=== PATIENT | female | born 1955 | race Caucasian/White ===

== ENCOUNTER → 2016-08-22 | Outpatient (CLI) | payer OTHER | END | disposition home or self-care (01) | LOC: C.LABSPEC 17:53 | PROVIDERS: ATTEND Nurse Practitioner Family | DX: J02.9 Acute pharyngitis, unspecified (principal) ==

== ENCOUNTER → 2016-08-23 | Outpatient (CLI) | payer OTHER | END | disposition home or self-care (01) | LOC: C.PAPS 11:22 | PROVIDERS: ATTEND Obstetrics & Gynecology | DX: Z12.4 Encounter for screening for malignant neoplasm of cervix (principal); Z87.42 Personal history of other diseases of the female genital tract ==

== ENCOUNTER → 2016-10-24 | Outpatient (CLI) | payer OTHER ==
--- NOTE | 2016-10-24 13:17 | MAMMOGRAPHY REPORT ---
BILATERAL DIGITAL SCREENING MAMMOGRAM TOMOSYNTHESIS WITH CAD: 10/24/2016 CLINICAL HISTORY: Routine screening. Patient has no complaints. TECHNIQUE: Breast tomosynthesis in addition to standard 2D mammography was performed. Current study was also evaluated with a Computer Aided Detection (CAD) system. COMPARISON: Comparison is made to exams dated: 12/27/2014 mammogram, 02/07/2012 mammogram, 01/10/2010 mammogram, 08/16/2008 mammogram, and 01/30/2007 mammogram. BREAST COMPOSITION: The tissue of both breasts is extremely dense, which lowers the sensitivity of mammography. FINDINGS: No suspicious masses, calcifications, or areas of architectural distortion are noted in e ither breast. There has been no significant interval change compared to prior exams. IMPRESSION: ACR BI-RADS CATEGORY 1: NEGATIVE There is no mammographic evidence of malignancy. A 1 year screening mammogram is recommended. The p atient will receive written notification of the results. Approximately 10% of breast cancers are not detected with mammography. A negative mammographic repor t should not delay biopsy if a clinically suggestive mass is present. Nai Giron M.D. ah/:10/24/2016 12:23:34 Guest Relations Officer: Birgit LOVE(R)(M), [facility] letter sent: Normal 1/2 BI-RADS Code: ACR BI-RADS Category 1: Negative
== END | disposition home or self-care (01) ==
LOC: C.MAMM 11:24
PROVIDERS: ATTEND Family Medicine
DX: Z12.31 Encounter for screening mammogram for malignant neoplasm of breast (principal)

== ENCOUNTER → 2016-11-26 | Outpatient (CLI) | payer OTHER ==
[2016-11-26 13:40] LABS: BASO % 0.3 %; BASO ABS # 0.03 K/uL (0-0.2); COMPLETE YES; EOS % 1.3 %; HEMATOCRIT 39.9 % (37-47); IG% 0.2 %; LYMPH % 17.1 %; LYMPH ABS # 1.53 K/uL (1.2-3.4); MEAN CORPUSCULAR HEMOGLOBIN 30.3 pg (25-34); MEAN CORPUSCULAR HGB CONC 32.6 g/dl (32-36); MEAN PLATELET VOLUME 11.6 fL (7.4-10.4); MONO % 5.8 %; NEUT % 75.3 %; PLATELET COUNT 293 K/uL (130-400); RED BLOOD COUNT 4.29 M/uL (4.2-5.4); WHITE BLOOD COUNT 8.94 K/uL (4.8-10.8)
[2016-11-26 14:00] LABS: BLOOD UREA NITROGEN 11 mg/dl (7-18); BUN/CREATININE RATIO 12.9 (10-20); CARBON DIOXIDE 27 mmol/L (21-32); CHLORIDE 104 mmol/L (98-107); CREATININE 0.87 mg/dl (0.60-1.20); GLUCOSE 101 mg/dl (70-99); POTASSIUM 4.3 mmol/L (3.5-5.1); SODIUM 140 mmol/L (136-145)
[2016-11-26 14:03] LABS: CALCIUM 9.2 mg/dl (8.5-10.1)
[2016-11-26 14:06] LABS: FERRITIN 20.8 ng/ml (8.0-388.0); TOTAL IRON BINDING CAPACITY 313 mcg/dl (250-450)
== END | disposition home or self-care (01) ==
LOC: C.LAB1850 12:10
PROVIDERS: ATTEND Family Medicine
DX: Z11.59 Encounter for screening for other viral diseases (principal); D50.9 Iron deficiency anemia, unspecified; M81.0 Age-related osteoporosis without current pathological fracture; M79.7 Fibromyalgia

== ENCOUNTER → 2017-07-22 | Outpatient (CLI) | payer OTHER ==
[2017-07-22 09:38] LABS: BASO % 0.9 %; BASO ABS # 0.05 K/uL (0-0.2); EOS % 2.6 %; EOS ABS # 0.15 K/uL (0-0.5); HEMATOCRIT 38.9 % (37-47); HEMOGLOBIN 13.3 g/dL (12.0-16.0); IG# 0.01 K/uL (0.00-0.02); LYMPH % 21.8 %; LYMPH ABS # 1.26 K/uL (1.2-3.4); MEAN CELL VOLUME 93.7 fL (80-100); MEAN CORPUSCULAR HGB CONC 34.2 g/dl (32-36); MEAN PLATELET VOLUME 11.3 fL (7.4-10.4); MONO % 5.4 %; MONO ABS # 0.31 K/uL (0.11-0.59); NEUT % 69.1 %; NEUT ABS # 4.01 K/uL (1.4-6.5); PLATELET COUNT 268 K/uL (130-400); RED CELL DISTRIBUTION WIDTH CV 13.4 % (11.5-14.5); RED CELL DISTRIBUTION WIDTH SD 46.1 fL (36.4-46.3); WHITE BLOOD COUNT 5.79 K/uL (4.8-10.8)
[2017-07-22 10:09] LABS: ALBUMIN 3.8 gm/dl (3.4-5.0); ALT/SGPT 29 U/L (12-78); AST/SGOT 21 U/L (15-37); BLOOD UREA NITROGEN 8 mg/dl (7-18); CALCIUM 8.9 mg/dl (8.5-10.1); CARBON DIOXIDE 31 mmol/L (21-32); CREATININE 0.87 mg/dl (0.60-1.20); GLUCOSE 80 mg/dl (70-99); POTASSIUM 3.9 mmol/L (3.5-5.1); SODIUM 135 mmol/L (136-145)
[2017-07-22 10:20] LABS: ALKALINE PHOSPHATASE 81 U/L (45-117); CHOLESTEROL 179 mg/dl (0-200); LDL CHOLESTEROL CALCULATED 95 mg/dl; TOTAL PROTEIN 7.7 gm/dl (6.4-8.2)
== END | disposition home or self-care (01) ==
LOC: C.LAB1850 08:55
PROVIDERS: ATTEND Neuromusculoskeletal Medicine & OMM
DX: Z00.00 Encounter for general adult medical examination without abnormal findings (principal); R53.83 Other fatigue; Z13.220 Encounter for screening for lipoid disorders; Z13.1 Encounter for screening for diabetes mellitus

== ENCOUNTER → 2017-09-30 | Outpatient (CLI) | payer OTHER | END | disposition home or self-care (01) | LOC: C.LAB1850 09:48 | PROVIDERS: ATTEND Internal Medicine Rheumatology | DX: M81.0 Age-related osteoporosis without current pathological fracture (principal); E55.9 Vitamin D deficiency, unspecified ==

== ENCOUNTER → 2018-01-29 | Outpatient (CLI) | payer OTHER | END | disposition home or self-care (01) | LOC: C.LABBC 15:29 | PROVIDERS: ATTEND Nurse Practitioner Family | DX: R20.2 Paresthesia of skin (principal) ==

== ENCOUNTER 2022-01-04 20:48 | Inpatient (IN) ==
[2022-01-04] MEDS ORDERED: ACETAMINOPHEN 1,000 MG/100 ML VIAL IV STA (21:39)
[2022-01-04] MEDS ORDERED: cefTRIAXone SODIUM 1,000 MG/50 ML BAG IV STA (21:39)
[2022-01-04] MEDS ORDERED: SODIUM CHLORIDE 0.9% 1000ML 1,000 ML IV ONE (21:39)
--- NOTE | 2022-01-04 21:54 | Emergency Department Note ---
History of Present Illness General Chief complaint: Leg Injury/Pain Stated complaint: CELULITIS IN RT LEG Time Seen by Provider: 01/04/22 21:28 History of Present Illness Maximum Pain Intensity: 8 This 66-year-old presents to the ER complaining of worsening right lower leg cellulitis for the past few days that was placed on Keflex by the PCP Location: Right lower leg Quality: Red and swollen Severity: Painful Duration: Past day Timing: Started yesterday Context: Symptoms got worse and patient came in Modifying factors: better with apap; worse with activity patient had a low-grade fever. She took Tylenol earlier today. She is having diarrhea the past few days. Patient denies chest pain, dyspnea, cough, congestion, flulike illness. Home Medications Medication Instructions Recorded Confirmed Type ondansetron 8 mg disintegrating 8 mg PO Q8H PRN nausea and 04/21/20 01/04/22 Rx tablet vomiting #30 tabs cyclobenzaprine 5 mg tablet 5 mg PO HS PRN muscle spasm 04/24/21 01/04/22 History fremanezumab-vfrm 225 mg/1.5 mL 225 mg (1.5 mL) subcut .COMPLEX 04/24/21 01/04/22 Rx subcutaneous syringe (Ajovy #1.5 mL Syringe) ketoconazole 2 % shampoo 1 applic topical .Apply shampoo 04/24/21 01/04/22 History daily PRN NEEDED PER PT calcium carb,cit ER 600 mg-vit D3 2 tab PO DAILY 05/02/21 01/04/22 History 12.5 mcg (500 unit) tablet,ext.rel (Citracal-D3 Slow Release) hydrocortisone 2.5 % topical cream 1 applic topical .APPLY SPARINGLY 05/02/21 01/04/22 History TO A PRN skin irritation ubrogepant 50 mg tablet (Ubrelvy) 50 mg PO .COMPLEX #10 tabs 06/26/21 01/04/22 Rx magnesium oxide 400 mg PO HS 10/11/21 01/04/22 History multivitamin 1 tab PO DAILY 10/11/21 01/04/22 History budesonide 9 mg tablet,delayed and 9 mg PO DAILY crohns disease #60 ea 11/15/21 01/04/22 Rx extended release mesalamine 1.2 gram tablet,delayed 4.8 g PO DAILY 8 weeks #224 tabs 11/15/21 01/04/22 Rx release olopatadine 0.6 % nasal spray 2 spray intranasal DAILY #30.5 11/28/21 01/04/22 Rx (Patanase) grams cephalexin 500 mg capsule 500 mg PO TID 7 days #21 caps 01/03/22 01/04/22 Rx conjugated estrogens 0.625 mg/gram 0.625 mg vaginal 2XWK 01/04/22 01/04/22 History vaginal cream valacyclovir 1 gram tablet 2,000 mg PO BID PRN Cold Sores 01/04/22 01/04/22 History Allergies Allergy/AdvReac Type Severity Reaction Status Date / Time teriparatide [From Forteo] AdvReac Intermediate Lower back Verified 01/03/22 10:42 pain, sweating and fatigue gluten AdvReac Unknown "gluten Verified 01/03/22 10:42 sensitive" Past Med/Surg History Medical History Acid reflux HX Arthritis Fibromyalgia History of anemia History of anxiety History of depression History of IBS History of kidney stones NO SURGERIES History of pathological fracture due to osteoporosis Hx of human papillomavirus infection Migraine Osteoporosis Seasonal allergies Surgical History H/O bilateral salpingectomy History of colonoscopy History of colposcopy "SEVERAL" History of esophagogastroduodenoscopy (EGD) History of hysterectomy History of tooth extraction Family History Mother Congestive heart failure Dementia Breast cancer Hypertension Family history of diabetes mellitus Grandfather (Paternal) Prostate cancer Father Lymphoma Cancer Brother Drug abuse Alcohol abuse Bipolar disorder Heart disease Allergies Grandfather Prostate cancer Grandmother (Maternal) Hypertension Sister Family history of diabetes mellitus Other No family history of adverse response to anesthesia No family history of bleeding disorder Stroke Denies family history of Colon cancer Ovarian cancer Myocardial infarction Social History Smoking Status: Never smoker Number of Years Since Quit: 40; Second Hand Exposure: Yes; Hx Alcohol Use: No Hx Substance Use: No Preferred Language: American Communication Ability: Effective Visual Impairment: No Limitations Hearing Ability: Normal Manager Golf Required: No Beliefs That Will Affect Care: None marital status: Current Living Situation: Family current occupational status: employed current occupation: self employed Feels Safe at Home: Yes Childhood Exposure to Second-Hand Smoke: Yes Dental Care, Regularly: Yes Physical Activity Frequency: Does not Exercise Seatbelt Use: always Sunscreen Use: Yes Assistive Devices: Glasses Review of Systems A total of 10 systems reviewed and were otherwise negative Physical Exam Vital Signs Vital Signs - 24 hr 01/04/22 21:02 01/04/22 21:31 01/04/22 21:31 Temperature 37.7 C H Temperature Source Temporal Artery Scan Pulse Rate 98 H Pulse Rate [Apical] Respiratory Rate 20 20 Respiratory Effort / Characteristics Non-Labored Spontaneous Respiratory Depth Normal Respiratory Pattern Blood Pressure 121/67 Blood Pressure [Right Arm] Blood Pressure Mean 85 Blood Pressure Mean [Right Arm] Blood Pressure Position Sitting Blood Pressure Position [Right Arm] Pulse Oximetry 96 98 98 Oxygen Delivery Method Room Air Room Air Room Air Sepsis Recent Fever Within 48 Hours Yes Sepsis New/Unexplained Change in Mental Status N/A Sepsis Action Taken by Nursing No Action Required 01/04/22 22:01 01/04/22 22:31 01/04/22 22:42 Temperature Temperature Source Pulse Rate Pulse Rate [Apical] 75 Respiratory Rate 20 18 20 Respiratory Effort / Characteristics Non-Labored Spontaneous Non-Labored Spontaneous Non-Labored Spontaneous Respiratory Depth Normal Respiratory Pattern Regular Blood Pressure Blood Pressure [Right Arm] 142/68 H Blood Pressure Mean Blood Pressure Mean [Right Arm] 92 Blood Pressure Position Blood Pressure Position [Right Arm] Sitting Pulse Oximetry 100 100 98 Oxygen Delivery Method Room Air Room Air Room Air Sepsis Recent Fever Within 48 Hours Sepsis New/Unexplained Change in Mental Status Sepsis Action Taken by Nursing VITALS: Vitals are noted on the nurse's note and reviewed by myself. Vital signs low-grade fever. GENERAL: Pleasant female, in no acute distress, nondiaphoretic, well-developed well-nourished. SKIN: Right lower anterior leg erythematous and edematous concerning for infection, the rest of the skin was without rashes, erythema, edema, or bruising. There is no tenting of the skin. Capillary reflex less than 2 seconds. HEAD: Normocephalic atraumatic. EARS: External auditory canals clear, EYES: Pupils equal round and reactive to light and accommodation. Conjunctivae without injection, sclerae without icterus. Extraocular movements intact. NOSE: Patent, turbinates without inflammation or discharge. MOUTH: Mucous membranes moist. Pharynx without erythema or exudate. Uvula midline. Airway patent. Tongue does not deviate. NECK: Supple without nuchal rigidity. No lymphadenopathy. No thyromegaly. Cervical spine is nontender. No JVD. HEART: Regular rate and rhythm LUNGS: Clear to auscultation bilaterally without wheezes, rales or rhonchi. No retractions or accessory muscle use. ABDOMEN: Positive bowel sounds x 4. Normal tympanic percussion. Soft, nontender, without masses or organomegaly. Regalado sign negative. No guarding or rebound tenderness. No CVA tenderness MUSCULOSKELETAL: No muscle atrophy, noted. NEURO: Patient was alert and oriented to person place and time. Normal sensation to light and sharp touch. No focal neurological deficits. Course Administered Medications Daptomycin 275 mg/ Syringe 5.5 mls @ 2.75 mls/min IV Q24H [facility]; Protocol Stop: 01/12/22 00:59 Last Admin: 01/05/22 01:09 Dose: 2.75 mls/min Documented By: ALMA Parenteral Electrolytes (Normosol-R) 1,000 mls @ 80 mls/hr IV .[id number] BRENNAN Stop: 02/03/22 23:44 Last Admin: 01/05/22 00:56 Dose: 80 mls/hr Documented By: ALMA Discontinued Medications Sodium Chloride (Nss 1000ml) 1,000 mls @ 999 mls/hr IV .[id number] ONE Stop: 01/04/22 22:39 Last Infusion: 01/04/22 23:43 Dose: 0 mls/hr Documented By: Admin: 01/04/22 22:17 Dose: 999 mls/hr Documented By: ALEX Acetaminophen (Ofirmev) 1,000 mg in 100 mls @ 400 mls/hr IV NOW STA Stop: 01/04/22 21:53 Last Infusion: 01/04/22 22:40 Dose: 0 mls/hr Documented By: Admin: 01/04/22 22:20 Dose: 400 mls/hr Documented By: ALEX Ceftriaxone Sodium (Rocephin) 1,000 mg in 50 mls @ 100 mls/hr IV NOW STA Stop: 01/04/22 22:08 Last Infusion: 01/04/22 22:51 Dose: 0 mls/hr Documented By: Admin: 01/04/22 22:21 Dose: 100 mls/hr Documented By: ALEX Vancomycin HCl 1,000 mg/ (Sodium Chloride) 520 mls @ 200 mls/hr IV NOW ONE Stop: 01/05/22 01:56 Last Admin: 01/04/22 23:42 Dose: Not Given Documented By: CLARISA Piperacillin Sod/Tazobactam (Sod 4.5 gm/ Dextrose) 120 mls @ 200 mls/hr IV 0100 ONE; Protocol Stop: 01/05/22 01:35 Last Infusion: 01/05/22 01:59 Dose: 0 mls/hr Documented By: Admin: 01/05/22 01:09 Dose: 200 mls/hr Documented By: ALMA Medical Decision Making Medical Records Attestation: I reviewed the patient's medical records. Home Medications Current Medication List: was personally reviewed by me Laboratory Data Attestation: I reviewed the patient's lab results. Result diagrams: 01/04/22 21:49 01/04/22 21:49 Lab Results 01/04/22 01/04/22 01/04/22 Range/Units 21:49 21:49 21:49 WBC 10.56 (4.8-10.8) K/ul RBC 4.09 (3.93-5.22) M/uL Hgb 12.5 (12.0-16.0) g/dl Hct 38.2 (34.1-44.9) % MCV 93.4 (80.0-100.0) fL MCH 30.6 (25.0-34.0) pg MCHC 32.7 (32.0-36.0) g/dL RDW Std Deviation 45.0 (36.4-46.3) fL RDW Coeff of Chay 13.2 (11.5-14.5) % Plt Count 232 (130-400) K/uL MPV 11.7 (9.4-12.3) fL Immature Gran % (Auto) 0.2 % Neut % (Auto) 82.5 % Lymph % (Auto) 10.0 % [place] % (Auto) 6.7 % Eos % (Auto) 0.3 % Baso % (Auto) 0.3 % Neut # (Auto) 8.71 H (1.4-6.5) K/uL Lymph # (Auto) 1.06 L (1.2-3.4) K/uL [place] # (Auto) 0.71 (0.24-0.82) K/uL Eos # (Auto) 0.03 (0-0.50) K/uL Baso # (Auto) 0.03 (0-0.2) K/uL Immature Gran # (Auto) 0.02 (0.00-0.02) K/uL PT 10.9 (9.0-12.0) Seconds INR 1.0 (0.9-1.1) APTT 27.1 (21.0-31.0) Seconds PTT Ratio 1.0 Sodium 141 (136-145) mmol/L Potassium 3.7 (3.5-5.1) mmol/L Chloride 107 (98-107) mmol/L Carbon Dioxide 28 (21-32) mmol/L Anion Gap 6 (3-11) BUN 12 (6-23) mg/dl Creatinine 1.15 (0.6-1.2) mg/dl Est Cr Clr Drug Dosing 35.3 ml/min Est GFR ( Amer) 57.8 ml/min Est GFR (Non-Af Amer) 49.9 ml/min BUN/Creatinine Ratio 10.4 (10-20) Glucose 105 H (70-99(Fasting)) mg/dl Lactate (0.4-2.0) mmol/L Calcium 8.9 (8.5-10.1) mg/dl Magnesium 2.0 (1.7-2.4) mg/dl Total Bilirubin 0.5 (0.2-1.0) mg/dl AST 23 (13-39) U/L ALT 22 (7-52) U/L Alkaline Phosphatase 81 (34-104) U/L Total Protein 7.1 (6.0-8.3) gm/dl Albumin 4.2 (3.4-5.0) gm/dl Globulin 2.9 (2.5-4.0) gm/dl Albumin/Globulin Ratio 1.4 (0.9-2) Procalcitonin (0-0.5) ng/ml Urine Color Urine Appearance (Clear) Urine pH (4.5-7.5) Ur Specific [place] (1.000-1.030) Urine Protein (Negative) Urine Glucose (UA) (Negative) Urine Ketones (Negative) Urine Blood (Negative) Urine Nitrite (Negative) Urine Bilirubin (Negative) Urine Urobilinogen (Negative) Ur Leukocyte Esterase (Negative) Lyme Disease IgG Ab (Negative) Lyme Disease IgM Ab (Negative) SARS-CoV-2 (PCR) (Negative) 01/04/22 01/04/22 01/04/22 Range/Units 21:49 21:49 21:49 WBC (4.8-10.8) K/ul RBC (3.93-5.22) M/uL Hgb (12.0-16.0) g/dl Hct (34.1-44.9) % MCV (80.0-100.0) fL MCH (25.0-34.0) pg MCHC (32.0-36.0) g/dL RDW Std Deviation (36.4-46.3) fL RDW Coeff of Chay (11.5-14.5) % Plt Count (130-400) K/uL MPV (9.4-12.3) fL Immature Gran % (Auto) % Neut % (Auto) % Lymph % (Auto) % [place] % (Auto) % Eos % (Auto) % Baso % (Auto) % Neut # (Auto) (1.4-6.5) K/uL Lymph # (Auto) (1.2-3.4) K/uL [place] # (Auto) (0.24-0.82) K/uL Eos # (Auto) (0-0.50) K/uL Baso # (Auto) (0-0.2) K/uL Immature Gran # (Auto) (0.00-0.02) K/uL PT (9.0-12.0) Seconds INR (0.9-1.1) APTT (21.0-31.0) Seconds PTT Ratio Sodium (136-145) mmol/L Potassium (3.5-5.1) mmol/L Chloride (98-107) mmol/L Carbon Dioxide (21-32) mmol/L Anion Gap (3-11) BUN (6-23) mg/dl Creatinine (0.6-1.2) mg/dl Est Cr Clr Drug Dosing ml/min Est GFR ( Amer) ml/min Est GFR (Non-Af Amer) ml/min BUN/Creatinine Ratio (10-20) Glucose (70-99(Fasting)) mg/dl Lactate 0.4 (0.4-2.0) mmol/L Calcium (8.5-10.1) mg/dl Magnesium (1.7-2.4) mg/dl Total Bilirubin (0.2-1.0) mg/dl AST (13-39) U/L ALT (7-52) U/L Alkaline Phosphatase (34-104) U/L Total Protein (6.0-8.3) gm/dl Albumin (3.4-5.0) gm/dl Globulin (2.5-4.0) gm/dl Albumin/Globulin Ratio (0.9-2) Procalcitonin (0-0.5) ng/ml Urine Color Urine Appearance (Clear) Urine pH (4.5-7.5) Ur Specific Crowell (1.000-1.030) Urine Protein (Negative) Urine Glucose (UA) (Negative) Urine Ketones (Negative) Urine Blood (Negative) Urine Nitrite (Negative) Urine Bilirubin (Negative) Urine Urobilinogen (Negative) Ur Leukocyte Esterase (Negative) Lyme Disease IgG Ab Negative (Negative) Lyme Disease IgM Ab Negative (Negative) SARS-CoV-2 (PCR) NEGATIVE (Negative) 01/04/22 01/04/22 Range/Units 21:49 22:37 WBC (4.8-10.8) K/ul RBC (3.93-5.22) M/uL Hgb (12.0-16.0) g/dl Hct (34.1-44.9) % MCV (80.0-100.0) fL MCH (25.0-34.0) pg MCHC (32.0-36.0) g/dL RDW Std Deviation (36.4-46.3) fL RDW Coeff of Chay (11.5-14.5) % Plt Count (130-400) K/uL MPV (9.4-12.3) fL Immature Gran % (Auto) % Neut % (Auto) % Lymph % (Auto) % [place] % (Auto) % Eos % (Auto) % Baso % (Auto) % Neut # (Auto) (1.4-6.5) K/uL Lymph # (Auto) (1.2-3.4) K/uL [place] # (Auto) (0.24-0.82) K/uL Eos # (Auto) (0-0.50) K/uL Baso # (Auto) (0-0.2) K/uL Immature Gran # (Auto) (0.00-0.02) K/uL PT (9.0-12.0) Seconds INR (0.9-1.1) APTT (21.0-31.0) Seconds PTT Ratio Sodium (136-145) mmol/L Potassium (3.5-5.1) mmol/L Chloride (98-107) mmol/L Carbon Dioxide (21-32) mmol/L Anion Gap (3-11) BUN (6-23) mg/dl Creatinine (0.6-1.2) mg/dl Est Cr Clr Drug Dosing ml/min Est GFR ( Amer) ml/min Est GFR (Non-Af Amer) ml/min BUN/Creatinine Ratio (10-20) Glucose (70-99(Fasting)) mg/dl Lactate (0.4-2.0) mmol/L Calcium (8.5-10.1) mg/dl Magnesium (1.7-2.4) mg/dl Total Bilirubin (0.2-1.0) mg/dl AST (13-39) U/L ALT (7-52) U/L Alkaline Phosphatase (34-104) U/L Total Protein (6.0-8.3) gm/dl Albumin (3.4-5.0) gm/dl Globulin (2.5-4.0) gm/dl Albumin/Globulin Ratio (0.9-2) Procalcitonin < 0.05 (0-0.5) ng/ml Urine Color Yellow Urine Appearance Clear (Clear) Urine pH 7.0 (4.5-7.5) Ur Specific [place]ell 1.023 (1.000-1.030) Urine Protein Negative (Negative) Urine Glucose (UA) Negative (Negative) Urine Ketones Trace H (Negative) Urine Blood Negative (Negative) Urine Nitrite Negative (Negative) Urine Bilirubin Negative (Negative) Urine Urobilinogen Negative (Negative) Ur Leukocyte Esterase Negative (Negative) Lyme Disease IgG Ab (Negative) Lyme Disease IgM Ab (Negative) SARS-CoV-2 (PCR) (Negative) MDM Narrative Prior records reviewed and summarized as above. Triage Nursing notes reviewed. Additional history obtained from family. The patient's history was concerning for swelling and redness of the skin. Differential diagnosis: Etiologies such as cellulitis, abscess, MRSA infection, DVT, necrotizing fasciitis, dermatitis, drug eruption, as well as others were entertained.. Physical examination: The physical examination was consistent with cellulitis ER treatment provided: Rocephin, vancomycin, Tylenol IV fluids On reassessment the patient felt better. Diagnostics interpreted by me: The labs revealed no worrisome leukocytosis Blood cultures are pending Lactic negative Consultation: A consultation was placed with the hospitalist. The case was discussed and diagnostics were reviewed. The patient was evaluated in the ER for further treatment. This appears to be isolated cellulitis. The infection has gotten worse. Patient's infections got worse. She now has a fever. Medicine was consulted. She will be admitted for IV antibiotics. By the evaluation outlined above emergent etiologies such as abscess, necrotizing fasciitis, DVT, as well as others were deemed relatively unlikely. The pt informed about the findings as listed above. All questions were answered and pleased with the treatment. The chart was completed utilizing [employer] Speech voice recognition software. Grammatical errors, random word insertions, pronoun errors, and incomplete sentences are an occassional consequence of this system due to software [place] itations, ambient noise, and hardware issues. Any formal questions or concerns about the content, text, or information contained within the body of this dictation should be directly addressed to the physician graduate research assistant for clarification. Impression & Plan Cellulitis of leg, right Discharge Plan Visit Data Chief Complaint: Leg Injury/Pain Stated Complaint: CELULITIS IN RT LEG ED Provider: Martinez Caldwell ED Midlevel Provider: Cecile Rubalcava Discharge Problem: Cellulitis of leg, right Patient Disposition: Admitted As Inpatient Condition: Good Discharge Instructions Interventions: ED Discharge Assessment Last Done: 01/05/22 00:09
[2022-01-04 22:09] LABS: Basophils # (auto) 0.03 K/uL (0-0.2); Basophils % (auto) 0.3 %; Eosinophils # (auto) 0.03 K/uL (0-0.50); Eosinophils % (auto) 0.3 %; Hematocrit (blood only) 38.2 % (34.1-44.9); Hemoglobin 12.5 g/dl (12.0-16.0); Immature Granulocytes # (auto) 0.02 K/uL (0.00-0.02); Immature Granulocytes % (auto) 0.2 %; Lymphocytes # (auto) 1.06 K/uL (1.2-3.4); Mean Corpuscular Hemoglobin 30.6 pg (25.0-34.0); Mean Corpuscular Hgb Conc 32.7 g/dL (32.0-36.0); Mean Corpuscular Volume 93.4 fL (80.0-100.0); Mean Platelet Volume 11.7 fL (9.4-12.3); Monocytes # (auto) 0.71 K/uL (0.24-0.82); Monocytes % (auto) 6.7 %; Neutrophils # (auto) 8.71 K/uL (1.4-6.5); Neutrophils % (auto) 82.5 %; Platelet Count 232 K/uL (130-400); RDW Coefficient of Variation 13.2 % (11.5-14.5); Red Blood Count 4.09 M/uL (3.93-5.22); White Blood Count 10.56 K/ul (4.8-10.8)
[2022-01-04 22:20] LABS: Partial Thromboplastin Time 27.1 Seconds (21.0-31.0); Prothrombin Time 10.9 Seconds (9.0-12.0)
[2022-01-04 22:32] LABS: Albumin Globulin Ratio 1.4 (0.9-2); Albumin Level 4.2 gm/dl (3.4-5.0); BUN Creatinine Ratio 10.4 (10-20); Bilirubin,Total 0.5 mg/dl (0.2-1.0); Calcium 8.9 mg/dl (8.5-10.1); Creatinine Clr Calc Pharmacy 35.3 ml/min; Est GFR (African American) 57.8 ml/min; Est GFR (Non-African American) 49.9 ml/min; Globulin 2.9 gm/dl (2.5-4.0); Potassium 3.7 mmol/L (3.5-5.1); Total Protein 7.1 gm/dl (6.0-8.3)
[2022-01-04 22:49] LABS: Appearance Urine Clear (Clear); Bilirubin Urine Negative (Negative); Blood Urine Negative (Negative); Color Urine Yellow; Glucose Urine UA Negative (Negative); Ketones Urine Trace (Negative); Leukocyte Esterase Urine Negative (Negative); Nitrite Urine Negative (Negative); Protein Urine Negative (Negative); Specific Gravity Urine 1.023 (1.000-1.030); Urobilinogen Urine Negative (Negative)
--- NOTE | 2022-01-04 23:13 | History & Physical Report ---
Date of Service January 04, 2022 Assessment & Plan (1) Cellulitis of right lower extremity: Plan: Immunocompromised patient with growing right lower extremity cellulitis x 4-5 days, with associated fever/chills x1 day. No signs or symptoms of Lyme disease/tick-borne illness or sporotrichosis (recent raspberry picking). Failed outpatient Keflex. No sepsis on presentation. - lactate 0.4, ordered procalcitonin - pending - lyme IgM/IgG pending - s/p Ceftriaxone 1g IV in ED - continue with broad-spectrum coverage: Daptomycin 325mg IV Q24H + Zosyn 4.5mg IV Q8H - trend blood cx and adjust abx as necessary - s/p NSS 1L bolus - continue with full maintenance IVFs: Normosol-R @80cc/hr - PRN Tylenol for pain/fever - trend CBC in AM (2) Crohns disease: Plan: Chronic, diagnosed in 10/2021. - continue Budesonide 9mg PO daily and Mesalamine - consider addition of stress dose steroids if becomes septic (3) Chronic migraine w/o aura w/o status migrainosus, not intractable: Plan: Chronic, f/w [facility]. Continue home Ajovy. (4) Osteoporosis: Plan: Chronic. Continue daily calcium supplementation. Consider bisphosphonate as outpatient - per PCP. Plan FEN/GI: regular diet, Normosol-R @80cc/hr DVT Prophylaxis: Lovenox 30mg SQ Code Status: full code Disposition: med/tele History of Present Illness Chief Complaint: leg infection Primary Care Provider: Iwona Todd MD Monico Frost is a 66yo female with PMHx significant for Crohn's disease (diagno sed in 10/2021, on Budesonide/Mesalamine) and migraine with aura, who presented to [facility] ED on 01/04 for progressive right lower extremity cellulitis for several days, despite being started on Keflex PO by PCP on 01/03. Patient also reports fever/chills x1 day. Patient reports that she had been working in her raspberry patch every day before the onset of her RLE rash. Denies denies excoriation of her leg or bug bites while working in the patch. Denies red streaking up her leg although does have worsening pain when walking today. Patient is immunocompromised - diagnosed with Crohn's right-sided colitis in 10/2021 and started Mesalamine and Budesonide on 11/15/2021. Patient does have persistent diarrhea although this has improved since starting on medications. Denies smoking/alcohol/drug use. Proficient in ADLs/iADLs. In the ED the patient had elevated temp of 37.7C and HR 98. Normotensive and satting well on room air. Labs significant for WBC 10.56 (neutrophilic predominance, no left shift). Lactate 0.4. UA clean. CXR unremarkable. Patient was given NSS 1L bolus, Tylenol 1g IV, and CTX 1g IV. Blood culture collected before initation of abx. Patient currently feels cold and has mild p ain of right lower extremity. Allergies Allergy/AdvReac Type Severity Reaction Status Date / Time teriparatide [From Forteo] AdvReac Intermediate Lower back Verified 01/03/22 10:42 pain, sweating and fatigue gluten AdvReac Unknown "gluten Verified 01/03/22 10:42 sensitive" Home Medications Medication Instructions Recorded Confirmed Type ondansetron 8 mg disintegrating 8 mg PO Q8H PRN nausea and 04/21/20 01/04/22 Rx tablet vomiting #30 tabs cyclobenzaprine 5 mg tablet 5 mg PO HS PRN muscle spasm 04/24/21 01/04/22 History fremanezumab-vfrm 225 mg/1.5 mL 225 mg (1.5 mL) subcut .COMPLEX 04/24/21 01/04/22 Rx subcutaneous syringe (Ajovy #1.5 mL Syringe) ketoconazole 2 % shampoo 1 applic topical .Apply shampoo 04/24/21 01/04/22 History daily PRN NEEDED PER PT calcium carb,cit ER 600 mg-vit D3 2 tab PO DAILY 05/02/21 01/04/22 History 12.5 mcg (500 unit) tablet,ext.rel (Citracal-D3 Slow Release) hydrocortisone 2.5 % topical cream 1 applic topical .APPLY SPARINGLY 05/02/21 01/04/22 History TO A PRN skin irritation ubrogepant 50 mg tablet (Ubrelvy) 50 mg PO .COMPLEX #10 tabs 06/26/21 01/04/22 Rx magnesium oxide 400 mg PO HS 10/11/21 01/04/22 History multivitamin 1 tab PO DAILY 10/11/21 01/04/22 History budesonide 9 mg tablet,delayed and 9 mg PO DAILY crohns disease #60 ea 11/15/21 01/04/22 Rx extended release mesalamine 1.2 gram tablet,delayed 4.8 g PO DAILY 8 weeks #224 tabs 11/15/21 01/04/22 Rx release olopatadine 0.6 % nasal spray 2 spray intranasal DAILY #30.5 11/28/21 01/04/22 Rx (Patanase) grams cephalexin 500 mg capsule 500 mg PO TID 7 days #21 caps 01/03/22 01/04/22 Rx conjugated estrogens 0.625 mg/gram 0.625 mg vaginal 2XWK 01/04/22 01/04/22 History vaginal cream valacyclovir 1 gram tablet 2,000 mg PO BID PRN Cold Sores 01/04/22 01/04/22 History Past Med/Surg History Medical History Acid reflux HX Arthritis Fibromyalgia History of anemia History of anxiety History of depression History of IBS History of kidney stones NO SURGERIES History of pathological fracture due to osteoporosis Hx of human papillomavirus infection Migraine Osteoporosis Seasonal allergies Surgical History H/O bilateral salpingectomy History of colonoscopy History of colposcopy "SEVERAL" History of esophagogastroduodenoscopy (EGD) History of hysterectomy History of tooth extraction Family History Mother Congestive heart failure Dementia Breast cancer Hypertension Family history of diabetes mellitus Grandfather (Paternal) Prostate cancer Father Lymphoma Cancer Brother Drug abuse Alcohol abuse Bipolar disorder Heart disease Allergies Grandfather Prostate cancer Grandmother (Maternal) Hypertension Sister Family history of diabetes mellitus Other No family history of adverse response to anesthesia No family history of bleeding disorder Stroke Denies family history of Colon cancer Ovarian cancer Myocardial infarction Social History Smoking Status: Never smoker Number of Years Since Quit: 40; Second Hand Exposure: Yes; Hx Alcohol Use: No Hx Substance Use: No Preferred Language: Spanish Communication Ability: Effective Visual Impairment: No Limitations Hearing Ability: Normal Flight Operations Engineer Required: No Beliefs That Will Affect Care: None marital status: Current Living Situation: Family current occupational status: employed current occupation: self employed Feels Safe at Home: Yes Childhood Exposure to Second-Hand Smoke: Yes Dental Care, Regularly: Yes Physical Activity Frequency: Does not Exercise Seatbelt Use: always Sunscreen Use: Yes Assistive Devices: None Review of Systems Review of Systems: All systems reviewed & are unremarkable except as noted in HPI & below Physical Exam Physical Exam: General: A&Ox3. NAD. Cooperative. HEENT: Atraumatic, normocephalic. Pulm: CTAB A&P. -wheezes, -rales, -rhonchi. Symmetrical chest rise. No increase work of breathing. No respiratory distress. Cardiac: RRR, -mrg. Radial pulses intact and symmetrical. Abdominal: soft, non-tender, non-distended, BS x 4 Skin: RLE with erythematous rash on anterior chi with redness spreading down towards the ankle, 50% of circumference of leg, without red streaking beyond this. Warm/mildly tender to palpation. No excoriation/ulceration/drainage. Results & Data Results & Data ([facility]) Vital Signs (Past 12 Hours) Vital Signs Temp Pulse Pulse Resp BP BP Pulse Ox 01/04/22 22:42 75 20 142/68 H 98 01/04/22 22:31 18 100 01/04/22 22:01 20 100 01/04/22 21:31 98 01/04/22 21:31 20 98 01/04/22 21:02 37.7 C H 98 H 20 121/67 96 O2 Del Method 01/04/22 22:42 Room Air 01/04/22 22:31 Room Air 01/04/22 22:01 Room Air 01/04/22 21:31 Room Air 01/04/22 21:31 Room Air 01/04/22 21:02 Room Air Supervising Physician Co-Signing Physician Notes Attending addendum: I have physically seen this patient, have supervised the medical residents activities, and agree with the H&P unless as otherwise noted. Assessment and Plan: Right lower extremity cellulitis- Ordering Lyme titers Status post ceftriaxone 1 g IV in ED Due to immunocompromise state, placed on daptomycin IV and Zosyn IV as noted Status post 1 L normal saline in the ED Normosol 80 mils per hour x1 L Crohn's disease- Continue budesonide and mesalamine Remaining orders and notations as noted Resident Activity Tracking Resident Involvement: Resident Care Provided Care Provided: Adult [facility]
[2022-01-04] MEDS ORDERED: VANCOMYCIN CONSULT ACTIVE PRN (23:21)
[2022-01-04] MEDS ORDERED: VANCOMYCIN HCL 1,000 MG in SODIUM CHLORIDE 0.9% 500 ML IV ONE (23:21)
[2022-01-04] MEDS ORDERED: PIPERACILLIN/TAZOBACTAM 4.5 GM in DEXTROSE 5% 100 ML IV SCH (23:45)
[2022-01-05 00:04] LABS: Lyme Ab IgG w/WB Rflx Negative (Negative); Lyme Ab IgM w/WB Rflx Negative (Negative)
[2022-01-05] MEDS ORDERED: ONDANSETRON INJ 2 MG/ML 2 ML VIAL IV PRN (00:29)
[2022-01-05] MEDS ORDERED: ACETAMINOPHEN 500 MG TAB PO PRN (00:29)
[2022-01-05] MEDS: NORMOSOL-R 1,000 ML IV SCH ×2 (00:56→13:46)
[2022-01-05] MEDS ORDERED: PIPERACILLIN/TAZOBACTAM 4.5 GM in DEXTROSE 5% 100 ML IV ONE (01:00)
[2022-01-05] MEDS: DAPTOmycin 275 MG in SYRINGE 0 ML IV SCH (01:09)
[2022-01-05] MEDS ORDERED: HYDROmorphone INJ 0.5 MG/0.5 ML SYR IV PRN (02:32)
[2022-01-05] MEDS ORDERED: oxyCODONE HCL IR 5 MG TAB (IMMEDIATE RELEASE) PO PRN (02:32)
[2022-01-05] MEDS: PIPERACILLIN/TAZOBACTAM 3.375 GM in DEXTROSE 5% 100 ML IV SCH ×2 (05:15→14:42)
[2022-01-05 06:28] LABS: Basophils # (auto) 0.03 K/uL (0-0.2); Basophils % (auto) 0.3 %; Eosinophils # (auto) 0.06 K/uL (0-0.50); Eosinophils % (auto) 0.5 %; Hematocrit (blood only) 34.5 % (34.1-44.9); Hemoglobin 11.4 g/dl (12.0-16.0); Immature Granulocytes # (auto) 0.04 K/uL (0.00-0.02); Immature Granulocytes % (auto) 0.4 %; Lymphocytes # (auto) 1.04 K/uL (1.2-3.4); Lymphocytes % (auto) 9.5 %; Mean Corpuscular Hemoglobin 30.9 pg (25.0-34.0); Mean Corpuscular Volume 93.5 fL (80.0-100.0); Monocytes # (auto) 0.81 K/uL (0.24-0.82); Monocytes % (auto) 7.4 %; Neutrophils # (auto) 8.99 K/uL (1.4-6.5); Neutrophils % (auto) 81.9 %; Platelet Count 175 K/uL (130-400); RDW Coefficient of Variation 13.2 % (11.5-14.5); RDW Standard Deviation 45.1 fL (36.4-46.3); Red Blood Count 3.69 M/uL (3.93-5.22); White Blood Count 10.97 K/ul (4.8-10.8)
[2022-01-05 07:08] LABS: Albumin Globulin Ratio 1.4 (0.9-2); Albumin Level 3.6 gm/dl (3.4-5.0); BUN Creatinine Ratio 12.7 (10-20); Bilirubin,Total 0.6 mg/dl (0.2-1.0); Calcium 8.2 mg/dl (8.5-10.1); Creatinine Clr Calc Pharmacy 51.8 ml/min; Est GFR (Non-African American) 78.6 ml/min; Globulin 2.6 gm/dl (2.5-4.0); Magnesium 1.8 mg/dl (1.7-2.4); Potassium 3.5 mmol/L (3.5-5.1); Total Protein 6.2 gm/dl (6.0-8.3)
--- NOTE | 2022-01-05 07:14 | Ultrasound Report ---
ULTRASOUND RIGHT LOWER EXTREMITY VENOUS CLINICAL HISTORY: Right leg pain and swelling. Erythema. COMPARISON STUDY: No priors. TECHNIQUE: Real-time, grayscale, and color Doppler sonography of the deep veins of the right lower ex tremity was performed from the inguinal crease to the calf. Compression and augmentation were utilize d. FINDINGS: There is no sonographic evidence of deep venous thrombosis identified in the right lower ex tremity. The common femoral, superficial femoral, and popliteal veins are patent and normally verona sible. The greater saphenous vein and the profunda femoris vein at the junction with the common femor al vein are clear. The visualized calf veins are patent. Prominent right inguinal lymph nodes are lik amy reactive. IMPRESSION: There is no sonographic evidence of deep venous thrombosis identified in the right lower extremity. ACT 112: Negative or not required by law. Electronically signed by: Hugh Johnson M.D. 01/05/2022 7:12 AM
--- NOTE | 2022-01-05 07:15 | Hospitalist Progress Note ---
Date of Service January 05, 2022 Assessment & Plan (1) Cellulitis of right lower extremity: (2) Crohns disease: (3) Chronic migraine w/o aura w/o status migrainosus, not intractable: (4) Osteoporosis: Plan Monico Frost is a 66 y/o female with PMHx significant for Crohn's disease (diag nosed in 10/2021, on Budesonide/Mesalamine) and migraine with aura, who presented to [facility] ED on 01/04 for progressive right lower extremity cellulitis for several days, despite being started on Keflex PO by PCP on 01/03. Patient also reports fever/chills x1 day. Patient reports that she had been working in her raspberry patch every day before the onset of her RLE rash. Denies denies excoriation of her leg or bug bites while working in the patch. Denies red streaking up her leg although does have worsening pain when walking today. Patient is immunocompromised - diagnosed with Crohn's right-sided colitis in 10/2021 and started Mesalamine and Budesonide on 11/15/2021. Patient does have persistent diarrhea although this has improved since starting on medications. Denies smoking/alcohol/drug use. Proficient in ADLs/iADLs. In the ED the patient had elevated temp of 37.7C and HR 98. Normotensive and satting well on room air. Labs significant for WBC 10.56 (neutrophilic predominance, no left shift). Lactate 0.4. UA clean. CXR unremarkable. Patient was given NSS 1L bolus, Tylenol 1g IV, and CTX 1g IV. Blood culture collected before initiation of abx. Patient currently feels cold and has mild p ain of right lower extremity. #Cellulitis RLE Immunocompromised patient with growing right lower extremity cellulitis x 4-5 days, with associated fever/chills x1 day. No signs or symptoms of Lyme dis ease/tick-borne illness or sporotrichosis (recent raspberry picking). Failed outpatient Keflex. No sepsis on presentation. Lactate 0.4, procal <0.05, Lyme IgG neg and IgM neg. [] s/p Ceftriaxone 1g IV in ED - continue with broad-spectrum coverage: Daptomycin 325mg IV Q24H + Zosyn 4.5mg IV Q8H [] trend blood cx and adjust abx as necessary [] s/p NSS 1L bolus - continue with full maintenance IVFs: Normosol-R @80cc/hr [] PRN Tylenol for pain/fever [] trend CBC in AM - 10.56 --> 10.97 #Crohns Chronic, diagnosed in 10/2021. [] continue Budesonide 9mg PO daily and Mesalamine [] consider addition of stress dose steroids if becomes septic #Migraines Chronic, f/w [facility]. [] Continue home Ajovy. #Osteoporosis Chronic. Continue daily calcium supplementation. Consider bisphosphonate as outpatient - per PCP. [] calcium supplementation FEN/GI: regular diet, Normosol-R @80cc/hr DVT Prophylaxis: Lovenox 30mg SQ Code Status: full code Disposition: med/tele Admission and Anticipated Discharge Date Admission Date: January 04, 2022 Review of Systems Review of Systems: See subjective/HPI Physical Exam Physical Exam: General: A&Ox3. NAD. Cooperative. HEENT: Atraumatic, normocephalic. Pulm: CTAB A&P. -wheezes, -rales, -rhonchi. Symmetrical chest rise. No increase work of breathing. No respiratory distress. Cardiac: RRR, -mrg. Radial pulses intact and symmetrical. Abdominal: soft, non-tender, non-distended, BS x 4 Skin: RLE with erythematous rash on anterior chi with redness spreading down towards the ankle, 50% of circumference of leg, without red streaking beyond this. Warm/mildly tender to palpation. No excoriation/ulceration/drainage. Results & Data Results & Data ([facility]) Vital Signs (Past 12 Hours) Vital Signs Temp Pulse Pulse Pulse Resp BP BP 01/05/22 03:32 37.1 C 74 18 110/66 01/05/22 00:34 71 01/05/22 01:19 37.4 C 73 20 129/71 01/05/22 00:29 37.4 C 73 20 129/71 01/05/22 00:29 01/05/22 00:09 01/05/22 00:00 37.1 C 71 16 126/70 01/04/22 22:42 75 20 142/68 H 01/04/22 22:31 18 01/04/22 22:01 20 01/04/22 21:31 01/04/22 21:31 20 01/04/22 21:02 37.7 C H 98 H 20 121/67 Pulse Ox Pulse Ox O2 Del Method O2 Del Method 01/05/22 03:32 98 Room Air 01/05/22 00:34 01/05/22 01:19 98 Room Air 01/05/22 00:29 98 Room Air 01/05/22 00:29 98 Room Air 01/05/22 00:09 Room Air 01/05/22 00:00 98 01/04/22 22:42 98 Room Air 01/04/22 22:31 100 Room Air 01/04/22 22:01 100 Room Air 01/04/22 21:31 98 Room Air 01/04/22 21:31 98 Room Air 01/04/22 21:02 96 Room Air Laboratory Results 01/05/22 01/05/22 01/04/22 Range/Units 05:51 05:51 22:37 WBC 10.97 H (4.8-10.8) K/ul RBC 3.69 L (3.93-5.22) M/uL Hgb 11.4 L (12.0-16.0) g/dl Hct 34.5 (34.1-44.9) % MCV 93.5 (80.0-100.0) fL MCH 30.9 (25.0-34.0) pg MCHC 33.0 (32.0-36.0) g/dL RDW Std Deviation 45.1 (36.4-46.3) fL RDW Coeff of Chay 13.2 (11.5-14.5) % Plt Count 175 (130-400) K/uL MPV 12.0 (9.4-12.3) fL Immature Gran % (Auto) 0.4 % Neut % (Auto) 81.9 % Lymph % (Auto) 9.5 % [place] % (Auto) 7.4 % Eos % (Auto) 0.5 % Baso % (Auto) 0.3 % Neut # (Auto) 8.99 H (1.4-6.5) K/uL Lymph # (Auto) 1.04 L (1.2-3.4) K/uL [place] # (Auto) 0.81 (0.24-0.82) K/uL Eos # (Auto) 0.06 (0-0.50) K/uL Baso # (Auto) 0.03 (0-0.2) K/uL Immature Gran # (Auto) 0.04 H (0.00-0.02) K/uL PT (9.0-12.0) Seconds INR (0.9-1.1) APTT (21.0-31.0) Seconds PTT Ratio Sodium 138 (136-145) mmol/L Potassium 3.5 (3.5-5.1) mmol/L Chloride 107 (98-107) mmol/L Carbon Dioxide 25 (21-32) mmol/L Anion Gap 6 (3-11) BUN 10 (6-23) mg/dl Creatinine 0.79 D (0.6-1.2) mg/dl Est Cr Clr Drug Dosing 51.8 ml/min Est GFR ( Amer) 91.0 ml/min Est GFR (Non-Af Amer) 78.6 ml/min BUN/Creatinine Ratio 12.7 (10-20) Glucose 95 (70-99(Fasting)) mg/dl Lactate (0.4-2.0) mmol/L Calcium 8.2 L (8.5-10.1) mg/dl Magnesium 1.8 (1.7-2.4) mg/dl Total Bilirubin 0.6 (0.2-1.0) mg/dl AST 20 (13-39) U/L ALT 20 (7-52) U/L Alkaline Phosphatase 65 (34-104) U/L Total Protein 6.2 (6.0-8.3) gm/dl Albumin 3.6 (3.4-5.0) gm/dl Globulin 2.6 (2.5-4.0) gm/dl Albumin/Globulin Ratio 1.4 (0.9-2) Procalcitonin (0-0.5) ng/ml Urine Color Yellow Urine Appearance Clear (Clear) Urine pH 7.0 (4.5-7.5) Ur Specific [place] 1.023 (1.000-1.030) Urine Protein Negative (Negative) Urine Glucose (UA) Negative (Negative) Urine Ketones Trace H (Negative) Urine Blood Negative (Negative) Urine Nitrite Negative (Negative) Urine Bilirubin Negative (Negative) Urine Urobilinogen Negative (Negative) Ur Leukocyte Esterase Negative (Negative) Lyme Disease IgG Ab (Negative) Lyme Disease IgM Ab (Negative) SARS-CoV-2 (PCR) (Negative) 01/04/22 01/04/22 01/04/22 Range/Units 21:49 21:49 21:49 WBC (4.8-10.8) K/ul RBC (3.93-5.22) M/uL Hgb (12.0-16.0) g/dl Hct (34.1-44.9) % MCV (80.0-100.0) fL MCH (25.0-34.0) pg MCHC (32.0-36.0) g/dL RDW Std Deviation (36.4-46.3) fL RDW Coeff of Chay (11.5-14.5) % Plt Count (130-400) K/uL MPV (9.4-12.3) fL Immature Gran % (Auto) % Neut % (Auto) % Lymph % (Auto) % [place] % (Auto) % Eos % (Auto) % Baso % (Auto) % Neut # (Auto) (1.4-6.5) K/uL Lymph # (Auto) (1.2-3.4) K/uL [place] # (Auto) (0.24-0.82) K/uL Eos # (Auto) (0-0.50) K/uL Baso # (Auto) (0-0.2) K/uL Immature Gran # (Auto) (0.00-0.02) K/uL PT (9.0-12.0) Seconds INR (0.9-1.1) APTT (21.0-31.0) Seconds PTT Ratio Sodium (136-145) mmol/L Potassium (3.5-5.1) mmol/L Chloride (98-107) mmol/L Carbon Dioxide (21-32) mmol/L Anion Gap (3-11) BUN (6-23) mg/dl Creatinine (0.6-1.2) mg/dl Est Cr Clr Drug Dosing ml/min Est GFR ( Amer) ml/min Est GFR (Non-Af Amer) ml/min BUN/Creatinine Ratio (10-20) Glucose (70-99(Fasting)) mg/dl Lactate (0.4-2.0) mmol/L Calcium (8.5-10.1) mg/dl Magnesium (1.7-2.4) mg/dl Total Bilirubin (0.2-1.0) mg/dl AST (13-39) U/L ALT (7-52) U/L Alkaline Phosphatase (34-104) U/L Total Protein (6.0-8.3) gm/dl Albumin (3.4-5.0) gm/dl Globulin (2.5-4.0) gm/dl Albumin/Globulin Ratio (0.9-2) Procalcitonin < 0.05 (0-0.5) ng/ml Urine Color Urine Appearance (Clear) Urine pH (4.5-7.5) Ur Specific [place] (1.000-1.030) Urine Protein (Negative) Urine Glucose (UA) (Negative) Urine Ketones (Negative) Urine Blood (Negative) Urine Nitrite (Negative) Urine Bilirubin (Negative) Urine Urobilinogen (Negative) Ur Leukocyte Esterase (Negative) Lyme Disease IgG Ab Negative (Negative) Lyme Disease IgM Ab Negative (Negative) SARS-CoV-2 (PCR) NEGATIVE (Negative) 01/04/22 01/04/22 01/04/22 Range/Units 21:49 21:49 21:49 WBC (4.8-10.8) K/ul RBC (3.93-5.22) M/uL Hgb (12.0-16.0) g/dl Hct (34.1-44.9) % MCV (80.0-100.0) fL MCH (25.0-34.0) pg MCHC (32.0-36.0) g/dL RDW Std Deviation (36.4-46.3) fL RDW Coeff of Chay (11.5-14.5) % Plt Count (130-400) K/uL MPV (9.4-12.3) fL Immature Gran % (Auto) % Neut % (Auto) % Lymph % (Auto) % [place] % (Auto) % Eos % (Auto) % Baso % (Auto) % Neut # (Auto) (1.4-6.5) K/uL Lymph # (Auto) (1.2-3.4) K/uL [place] # (Auto) (0.24-0.82) K/uL Eos # (Auto) (0-0.50) K/uL Baso # (Auto) (0-0.2) K/uL Immature Gran # (Auto) (0.00-0.02) K/uL PT 10.9 (9.0-12.0) Seconds INR 1.0 (0.9-1.1) APTT 27.1 (21.0-31.0) Seconds PTT Ratio 1.0 Sodium 141 (136-145) mmol/L Potassium 3.7 (3.5-5.1) mmol/L Chloride 107 (98-107) mmol/L Carbon Dioxide 28 (21-32) mmol/L Anion Gap 6 (3-11) BUN 12 (6-23) mg/dl Creatinine 1.15 (0.6-1.2) mg/dl Est Cr Clr Drug Dosing 35.3 ml/min Est GFR ( Amer) 57.8 ml/min Est GFR (Non-Af Amer) 49.9 ml/min BUN/Creatinine Ratio 10.4 (10-20) Glucose 105 H (70-99(Fasting)) mg/dl Lactate 0.4 (0.4-2.0) mmol/L Calcium 8.9 (8.5-10.1) mg/dl Magnesium 2.0 (1.7-2.4) mg/dl Total Bilirubin 0.5 (0.2-1.0) mg/dl AST 23 (13-39) U/L ALT 22 (7-52) U/L Alkaline Phosphatase 81 (34-104) U/L Total Protein 7.1 (6.0-8.3) gm/dl Albumin 4.2 (3.4-5.0) gm/dl Globulin 2.9 (2.5-4.0) gm/dl Albumin/Globulin Ratio 1.4 (0.9-2) Procalcitonin (0-0.5) ng/ml Urine Color Urine Appearance (Clear) Urine pH (4.5-7.5) Ur Specific [place] (1.000-1.030) Urine Protein (Negative) Urine Glucose (UA) (Negative) Urine Ketones (Negative) Urine Blood (Negative) Urine Nitrite (Negative) Urine Bilirubin (Negative) Urine Urobilinogen (Negative) Ur Leukocyte Esterase (Negative) Lyme Disease IgG Ab (Negative) Lyme Disease IgM Ab (Negative) SARS-CoV-2 (PCR) (Negative) 01/04/22 Range/Units 21:49 WBC 10.56 (4.8-10.8) K/ul RBC 4.09 (3.93-5.22) M/uL Hgb 12.5 (12.0-16.0) g/dl Hct 38.2 (34.1-44.9) % MCV 93.4 (80.0-100.0) fL MCH 30.6 (25.0-34.0) pg MCHC 32.7 (32.0-36.0) g/dL RDW Std Deviation 45.0 (36.4-46.3) fL RDW Coeff of Chay 13.2 (11.5-14.5) % Plt Count 232 (130-400) K/uL MPV 11.7 (9.4-12.3) fL Immature Gran % (Auto) 0.2 % Neut % (Auto) 82.5 % Lymph % (Auto) 10.0 % [place] % (Auto) 6.7 % Eos % (Auto) 0.3 % Baso % (Auto) 0.3 % Neut # (Auto) 8.71 H (1.4-6.5) K/uL Lymph # (Auto) 1.06 L (1.2-3.4) K/uL [place] # (Auto) 0.71 (0.24-0.82) K/uL Eos # (Auto) 0.03 (0-0.50) K/uL Baso # (Auto) 0.03 (0-0.2) K/uL Immature Gran # (Auto) 0.02 (0.00-0.02) K/uL PT (9.0-12.0) Seconds INR (0.9-1.1) APTT (21.0-31.0) Seconds PTT Ratio Sodium (136-145) mmol/L Potassium (3.5-5.1) mmol/L Chloride (98-107) mmol/L Carbon Dioxide (21-32) mmol/L Anion Gap (3-11) BUN (6-23) mg/dl Creatinine (0.6-1.2) mg/dl Est Cr Clr Drug Dosing ml/min Est GFR ( Amer) ml/min Est GFR (Non-Af Amer) ml/min BUN/Creatinine Ratio (10-20) Glucose (70-99(Fasting)) mg/dl Lactate (0.4-2.0) mmol/L Calcium (8.5-10.1) mg/dl Magnesium (1.7-2.4) mg/dl Total Bilirubin (0.2-1.0) mg/dl AST (13-39) U/L ALT (7-52) U/L Alkaline Phosphatase (34-104) U/L Total Protein (6.0-8.3) gm/dl Albumin (3.4-5.0) gm/dl Globulin (2.5-4.0) gm/dl Albumin/Globulin Ratio (0.9-2) Procalcitonin (0-0.5) ng/ml Urine Color Urine Appearance (Clear) Urine pH (4.5-7.5) Ur Specific [place] (1.000-1.030) Urine Protein (Negative) Urine Glucose (UA) (Negative) Urine Ketones (Negative) Urine Blood (Negative) Urine Nitrite (Negative) Urine Bilirubin (Negative) Urine Urobilinogen (Negative) Ur Leukocyte Esterase (Negative) Lyme Disease IgG Ab (Negative) Lyme Disease IgM Ab (Negative) SARS-CoV-2 (PCR) (Negative)
--- NOTE | 2022-01-05 08:45 | XRay Report ---
SINGLE VIEW CHEST CLINICAL HISTORY: Sepsis. Lower extremity cellulitis. FINDINGS: An AP, portable, upright chest radiograph is obtained. No prior studies are available for c omparison at the time of dictation. The cardiomediastinal silhouette is unremarkable noting atheroscl erotic calcification of the thoracic aorta. The lungs appear hyperinflated. No airspace consolidation or large pleural effusion is identified. No pneumothorax is seen. The skeletal structures are osteop enic. The bony thorax is grossly intact. IMPRESSION: No active disease in the chest. ACT 112: Negative or not required by law. Electronically signed by: Hugh Johnson M.D. 01/05/2022 8:44 AM
[2022-01-05] MEDS: HEPARIN SOD 5,000 UNIT/0.5 ML VIAL SQ SCH ×2 (08:50→22:11)
[2022-01-05] MEDS: BUDESONIDE EC 3 MG CAP PO SCH (08:50)
[2022-01-05] MEDS: CALCIUM CITRATE 950 MG TAB PO SCH (08:50)
--- NOTE | 2022-01-05 11:13 | Electrocardiogram Report ---
Test Reason : Blood Pressure : / mmHG Vent. Rate : 073 BPM Atrial Rate : 073 BPM P-R Int : 084 ms QRS Dur : 080 ms QT Int : 374 ms P-R-T Axes : -05 076 036 degrees QTc Int : 412 ms Poor data quality, interpretation may be adversely affected Sinus rhythm with short OR Nonspecific ST abnormality Abnormal ECG No previous ECGs available Confirmed by Keenan Sheppard ([id number]) on 01/05/2022 11:13:31 AM Referred By: REFERRED SELF Confirmed By:Keenan Sheppard
--- NOTE | 2022-01-05 18:18 | Hospitalist Progress Note ---
Date of Service January 05, 2022 Assessment & Plan (1) Cellulitis of leg, right: Plan (1) Cellulitis of right lower extremity: Plan: Immunocompromised patient with growing right lower extremity cellulitis x 4-5 days, with associated fever/chills x1 day. No signs or symptoms of Lyme disease/tick-borne illness or sporotrichosis (recent raspberry picking). Improved on daptomycin and Zosyn. More than likely, this was resistant gram- positive versus just not having enough time for the Keflex to workversus less likely gram-negative. Sporothrix definitely was worth consideration, but given that it improved with antibioticsdoes not appear to be that this was the case -Stop Zosyn, continue resistant gram-positive treatment. As long as she continues to show improvementprobably home tomorrow on Bactrim (2) Crohns disease: Plan: Chronic, diagnosed in 10/2021. - continue Budesonide 9mg PO daily and Mesalamine -Probiotics by her request (3) Chronic migraine w/o aura w/o status migrainosus, not intractable: Plan: Chronic, f/w [facility]. Continue home Ajovy. (4) Osteoporosis: Plan: Chronic. Continue daily calcium supplementation. Consider bisphosphonate as outpatient - per PCP. Plan FEN/GI: regular diet, Normosol-R @80cc/hr DVT Prophylaxis: Lovenox 30mg SQ Code Status: full code Disposition: Medical, hopefully home tomorrow Admission and Anticipated Discharge Date Admission Date: January 04, 2022 Subjective Leg far less red and less painfulstill has a very painful area in the mid chi. Notes that overall she is feeling much better though. Was only on Keflex for about a day and a half prior to admission. No other new complaints. Review of Systems Review of Systems: All systems reviewed & are unremarkable except as noted in HPI & below Physical Exam Physical Exam: In general she is awake and alert pleasant no distress. HEENT normocephalic atraumatic mucous membranes moist. Breathing unlabored no accessory muscle use good effort. Skin shows right lower extremity with a fairly large area of erythema and tenderness that is more maroon, is well within the outlined area, she has maybe a mild degree of medial tenderness proximal to her knee, but no clear lymphangitic streaking or medial thigh pain consistent with lymphangitis at this time.. Neuro shows no focal deficits. Results & Data Results & Data ([facility]) Vital Signs (Past 12 Hours) Vital Signs Temp Pulse Pulse Resp BP Pulse Ox O2 Del Method 01/05/22 15:15 98.4 F 74 20 106/57 L 97 Room Air 01/05/22 15:18 64 01/05/22 11:26 98.2 F 72 17 100/61 97 Room Air 01/05/22 08:27 80 01/05/22 08:24 99.7 F H 86 17 119/64 97 Room Air PG Care Time/CCT Total # of Minutes Spent Total Time Spent with Patient: Total time spent is greater than 50% in coordination of care (as documented) at patient's floor/unit and/or counseling patient: Coding Level of Care Code 47601 Subseq Hosp Care Lvl 3 Diagnoses Cellulitis of leg, right L03.115
--- NOTE | 2022-01-05 18:19 | Billing Data ---
Date of Service January 05, 2022 Coding Level of Care Code 17436 Subseq Hosp Care Lvl 3
[2022-01-05] MEDS ORDERED: MAGNESIUM OXIDE 400 MG TAB PO SCH (21:00)
[2022-01-05] MEDS: MESALAMINE 1 EA PO SCH (22:11)
[2022-01-05] MEDS: LACTOBACILLUS ACIDOPHILUS 1 GM PACK PO SCH (23:12)
--- NOTE | 2022-01-05 23:56 | Billing Data ---
Date of Service January 05, 2022 Coding Level of Care Code 14833 Initial Inpt Care Lvl 2
[2022-01-06] MEDS: DAPTOmycin 275 MG in SYRINGE 0 ML IV SCH (01:05)
[2022-01-06 07:56] LABS: Basophils # (auto) 0.02 K/uL (0-0.2); Basophils % (auto) 0.3 %; Eosinophils # (auto) 0.05 K/uL (0-0.50); Eosinophils % (auto) 0.6 %; Hematocrit (blood only) 32.7 % (34.1-44.9); Hemoglobin 10.7 g/dl (12.0-16.0); Immature Granulocytes # (auto) 0.01 K/uL (0.00-0.02); Immature Granulocytes % (auto) 0.1 %; Lymphocytes # (auto) 1.33 K/uL (1.2-3.4); Lymphocytes % (auto) 17.2 %; Mean Corpuscular Hemoglobin 30.2 pg (25.0-34.0); Mean Corpuscular Hgb Conc 32.7 g/dL (32.0-36.0); Mean Corpuscular Volume 92.4 fL (80.0-100.0); Mean Platelet Volume 12.2 fL (9.4-12.3); Monocytes # (auto) 0.72 K/uL (0.24-0.82); Monocytes % (auto) 9.3 %; Neutrophils # (auto) 5.61 K/uL (1.4-6.5); Neutrophils % (auto) 72.5 %; Platelet Count 177 K/uL (130-400); RDW Coefficient of Variation 13.3 % (11.5-14.5); RDW Standard Deviation 45.8 fL (36.4-46.3); Red Blood Count 3.54 M/uL (3.93-5.22); White Blood Count 7.74 K/ul (4.8-10.8)
[2022-01-06 08:35] LABS: BUN Creatinine Ratio 12.9 (10-20); Calcium 8.4 mg/dl (8.5-10.1); Est GFR (African American) 105.4 ml/min; Est GFR (Non-African American) 90.9 ml/min; Potassium 3.3 mmol/L (3.5-5.1)
[2022-01-06] MEDS: HEPARIN SOD 5,000 UNIT/0.5 ML VIAL SQ SCH (08:37)
[2022-01-06] MEDS: LACTOBACILLUS ACIDOPHILUS 1 GM PACK PO SCH (08:37)
[2022-01-06] MEDS: BUDESONIDE EC 3 MG CAP PO SCH (08:37)
[2022-01-06] MEDS: CALCIUM CITRATE 950 MG TAB PO SCH (08:37)
[2022-01-06] MEDS: MESALAMINE 1 EA PO SCH (08:38)
--- NOTE | 2022-01-06 17:29 | Discharge Summary ---
Date of Service January 06, 2022 Admission HPI Per Admitting Provider Monico Frsot is a 66yo female with PMHx significant for Crohn's disease (diagnosed in 10/2021, on Budesonide/Mesalamine) and migraine with aura, who presented to [facility] on 01/04 for progressive right lower extremity cellulitis for several days, despite being started on Keflex PO by PCP on 01/03. Patient also reports fever/chills x1 day. Patient reports that she had been working in her raspberry patch every day before the onset of her RLE rash. Denies denies excoriation of her leg or bug bites while working in the patch. Denies red streaking up her leg although does have worsening pain when walking today. Patient is immunocompromised - diagnosed with Crohn's right-sided colitis in 10/2021 and started Mesalamine and Budesonide on 11/15/2021. Patient does have persistent diarrhea although this has improved since starting on medications. Denies smoking/alcohol/drug use. Proficient in ADLs/iADLs. In the ED the patient had elevated temp of 37.7C and HR 98. Normotensive and satting well on room air. Labs significant for WBC 10.56 (neutrophilic predominance, no left shift). Lactate 0.4. UA clean. CXR unremarkable. Patient was given NSS 1L bolus, Tylenol 1g IV, and CTX 1g IV. Blood culture collected before initation of abx. Patient currently feels cold and has mild pain of right lower extremity. Principal Diagnosis RLE cellulitis Discharge Exam In general she is awake and alert pleasant no distress. HEENT normocephalic atraumatic mucous membranes moist. Breathing unlabored no accessory muscle use good effort. Skin shows right lower extremity area of erythema now more of a dull maroon with a little bit of purple, no spreading proximal to the outlined area, some of it is fading a little bit petechial. Absolutely no medial knee/thigh tenderness no lymphangitic streaking or nodes palpable, the central area of erythema that remains is nonfluctuant although it is tender, and some of the erythema does track distally around the back of her calf in a fashion that seems to be fitting with gravity causing fluid to track along fascial planes. No focal neurodeficits. Discharge Data Allergies Allergy/AdvReac Type Severity Reaction Status Date / Time teriparatide [From [facility]] AdvReac Intermediate Lower back Verified 01/03/22 10:42 pain, sweating and fatigue gluten AdvReac Unknown "gluten Verified 01/03/22 10:42 sensitive" Consultations 01/04/22 22:53 ED Decision to Admit Stat Ordered Studies 01/05/22 02:32 US venous doppler LE RT Urgent Hospital Course (1) Cellulitis of right lower extremity: 1) Cellulitis of right lower extremity: Plan: Immunocompromised patient with growing right lower extremity cellulitis x 4-5 days, with associated fever/chills x1 day. No signs or symptoms of Lyme disease/tick-borne illness or sporotrichosis (recent raspberry picking). I mproved on daptomycin and Zosyn. More than likely, this was resistant gram- positive versus just not having enough time for the Keflex to workversus less likely gram-negative. Sporothrix definitely was worth consideration, but given that it improved with antibioticsdoes not appear to be that this was the case -improved enough / appears quite safe to go home. bactrim DS BID (to cover for possible MRSA, as well as broader for possible gram negative from soil) - 12 more days sent for possible total of 14 days if needed; close outpt f/u to eval for ongoing improvement (and if improving quickly can consider shorter course of abx) (2) Crohns disease: Plan: Chronic, diagnosed in 10/2021. - continue Budesonide 9mg PO daily and Mesalamine -Probiotics (3) Chronic migraine w/o aura w/o status migrainosus, not intractable: Plan: Chronic, [facility]. Continue home Ajovy. (4) Osteoporosis: Plan: Chronic. Continue daily calcium supplementation. Consider bisphosphonate as outpatient - per PCP. (2) Crohns disease: (3) Chronic migraine w/o aura w/o status migrainosus, not intractable: (4) Osteoporosis: Total Time Total Time Spent Total Time Spent (In Minutes): >30 Discharge Plan Discharge Items Patient Disposition: Home - Self-Care Reason For Visit: RLE CELLULITIS Discharge Diagnosis: right leg cellulitis (skin/soft tissue infection) Condition on Discharge: Good Activity: Resume your previous activity Non-emergency contact: Primary Care Provider Call non-emergency contact if: you have any medication questions, your pain is worsening and your temperature is above 101 Follow-up/Referrals: Iwona Todd MD [Primary Care Provider] - 01/16/22 3:45 pm (Appt with Dr. Duenas) Diet: Regular Addtl Attending Provider Instructions: cellulitis -typically, these skin/soft tissue infections happen because of a "perfect storm" -- the right break in the skin (sometimes even microscopic) with the right bacteria (often something opportunisitic or even just new to our immune system) and the right time (wonderfully defined medically as "bad luck" - or sometimes when our immune system is down/distracted by other factors) -the huge majority of skin infections are staph/strep - because of the fact that they make up the largest proportion of our skin bacteria. in your case, we also had to account for bacteria found in dirt since you were kneeling in the garden as part of our circumstances leading up to the infection -things have settled out nicely - the redness has stopped spreading upwards, your labwork and vital signs look reassuring, and overall things appear safe to get you home -we'll transition from the IV antibiotics to bactrim (trimethoprim/sulfamethoxazole) - twice a day for presumptively another 12 days (see below) with your next dose being at bedtime tonight -the reason for the bactrim as our choice is that it is quite good at covering even resistant skin bacteria (locally, it's effective at killing 90% of even our MRSA strains) and it does have a fairly broad spectrum of coverage (when we're taking into account the potential for bacteria from the soil). most people tolerate it really well - i'd suggest taking it with food just so that it heath sn't upset your stomach. skin infections have a WIDE range of acceptable duration of treatment - anywhere from as little as 5 days to as much as 14 - largely based on how quickly the person gets better. for you, since this was pretty yucky at the start, and looks like it's going to probably be slow to improve, I've opted to assume 14 days of treatment (IV plus oral) BUT, if you start to turn the corner more quickly, as she follows you up in the office, Dr Todd may be able to shorten the duration -as we discussed - moving forward a low grade temperature tonight or even tomorrow (say 99-100 at the most) wouldn't be surprising, but if you had something truly in the fever range (101 or higher) we'd want you seen again. likewise, while the redness that remains will probably take a while to fade, i would not expect that redness to spread upwards. if there was increasing redness at the top of the area that's still inflamed (or if there's streaking/painful redness in the middle of your thigh) those would both be signs for concern. should that happen, i'd want to have you seen again right away (and as we discussed, this "badness" is probably only about a ~5% chance of happening - but it would be the "most likely unlikely" way this could refuse to get better) -less likely, but also to watch for - if the area in the middle of the purple- maroon discoloration doesn't clear, and starts to get "puffy" like there's a balloon under the skin - that is an area that a small abscess (pus pocket) could potentially form. it doesn't examine like that right now - but if it becomes not only the last area to get better, but more of a stubborn area that is still bad - then Dr Todd will want to be seeing you to make sure it doesn't start to look like something that would need to be drained (this is probably about a 1% chance of happening - but again in the "what to watch for" category) -the redness that's left now is mostly due to the inflamation - as we've discussed, while the infection caused the inflammation, the inflammation itself is a liquid that will take time to slowly get reabsorbed. when the area was really inflamed, unfortunately it can take a while for that fluid to get reabsorbed/go away. it can "drip" along with gravity - so while redness spreading up the leg would be cause for concern, redness/discoloration that goes downward/with gravity (around the back of the calf if you're keeping your leg up, or down to the foot/ankle if you're walking) would not at all be surprising -things can take a while to get better with this - to keep your sanity, electronic engraver progress more in 3-4 day increments. there will likely be day-to-day progress, but it will probably come slowly enough that each day will feel more or less the same if you compare it to just the day before. if you see a week where there's clearly no improvement, or if you see any clear worsening (as outlined above) - then we'd want you seen right away Pending Studies at Discharge: No Stand-Alone Forms: My [facility], Smoking Cessation Medications and DC Order Prescriptions: New sulfamethoxazole-trimethoprim [Bactrim DS] 800-160 mg tablet 1 tab PO BID Qty: 24 0RF Continued Ubrelvy 50 mg tablet 50 mg PO .COMPLEX Qty: 10 5RF Rx Instructions: 50 mg PO ONCE AT MIGRAINE ONSET. MAY REPEAT IN 2 HRS PRN; calcium carb and citrate-vitD3 [Citracal-D3 Slow Release] 600 mg-12.5 mcg (500 unit) tablet extended release 2 tab PO DAILY Label Comments: 2 tab PO DAILY; budesonide 9 mg tablet,delayed and ext.release 9 mg PO DAILY Qty: 60 0RF mesalamine 1.2 gram tablet,delayed release (DR/EC) 4.8 g PO DAILY 56 Days Qty: 224 2RF cyclobenzaprine 5 mg tablet 5 mg PO HS PRN (Reason: muscle spasm) ketoconazole 2 % shampoo 1 applic topical .Apply shampoo daily PRN (Reason: NEEDED PER PT) Ajovy Syringe 225 mg/1.5 mL syringe 225 mg subcut .COMPLEX Qty: 1.5 5RF Rx Instructions: 225 mg subcut EVERY 4 WEEKS; ondansetron 8 mg tablet,disintegrating 8 mg PO Q8H PRN (Reason: nausea and vomiting) Qty: 30 6RF hydrocortisone 2.5 % cream 1 applic topical .APPLY SPARINGLY TO A PRN (Reason: skin irritation) olopatadine [Patanase] 0.6 % spray,non-aerosol 2 spray intranasal DAILY Qty: 30.5 11RF valacyclovir 1 gram tablet 2,000 mg PO BID PRN (Reason: Cold Sores) Rx Instructions: TAKE 2 TABLETS BY MOUTH TWICE A DAY FOR 1 DAY AT FIRST SIGN OF ONSET conjugated estrogens 0.625 mg/gram cream 0.625 mg PV 2XWK Rx Instructions: Apply a pea sized amount multivitamin Tablet 1 tab PO DAILY magnesium oxide 400 mg magnesium Capsule 400 mg PO HS Discontinued cephalexin 500 mg capsule 500 mg PO TID 7 Days Qty: 21 0RF Rx Instructions: STARTED 01/04/22 FOR 7 DAYS Discharge Orders: Discharge Order (Routine); Ordered 01/06/22 Ordered By: Rishi Tolliver Admission Data Admit Date/Time: 01/04/22 23:44 Attending Provider: Rishi Tolliver Admit Provider: Isaias Varghese Primary Care Provider: Iwona Todd Other Providers: Jay Shah Other Interventions: Discharge Summary Assessment (RN) Last Done: 01/06/22 11:35 Coding Level of Care Code D/C DAY MANAGEMENT >30 MINS Diagnoses Cellulitis of right lower extremity L03.115 Crohns disease K50.90 Chronic migraine w/o aura w/o status migrainosus, not intractable G43.709 Osteoporosis M81.0
== END 2022-01-06 12:42 | disposition home or self-care (01) | DRG 603 ==
LOC: ED 20:48 → 2N 23:44 → SUATTDRO 23:44 → 2N 01-05 00:09